=== PATIENT | female | born 1960 | race Caucasian/White ===

== ENCOUNTER 2018-09-29 13:25 | Outpatient (CLI) | payer OTHER | END 2018-09-29 17:00 | disposition home or self-care (01) | LOC: RAD 13:25 | DX: N20.0 Calculus of kidney (principal); I10 Essential (primary) hypertension ==

== ENCOUNTER 2018-10-21 08:21 | Inpatient (IN) | payer OTHER ==
[~2018-10-21] VITALS: Ht 149.9 cm; Wt 95.3 kg
[~2018-10-21 08:21] MED LIST: ATACAND32 MG PO; CLONAZEPAM1 MG PO; CYMBALTA60 MG PO; PLAQUENIL PO; PREDNISONE5 M1 PO; PROTONIX40 MG PO
[2018-10-22] MEDS ORDERED: HYDROXYCHLOROQ200 MG PO (09:01)
== END 2018-10-23 10:24 | disposition home or self-care (01) | DRG 661 ==
LOC: CIR.AMB 08:21 → SURG 15:12 → O/R 15:12 → SURG 19:21
PROVIDERS: ADMIT Urology
PROC: BT1FYZZ Fluoroscopy of Left Kidney, Ureter and Bladder using Other Contrast (ICD-10-PCS; 2018-10-21)
PROC: 0TC43ZZ Extirpation of Matter from Left Kidney Pelvis, Percutaneous Approach (ICD-10-PCS; principal; 2018-10-21 10:30)
PROC: 3E0F7GC Introduction of Other Therapeutic Substance into Respiratory Tract, Via Natural or Artificial Opening (ICD-10-PCS; 2018-10-22)
DX: N20.0 Calculus of kidney (principal); I10 Essential (primary) hypertension; F41.8 Other specified anxiety disorders; F41.0 Panic disorder [episodic paroxysmal anxiety]; G43.809 Other migraine, not intractable, without status migrainosus; M15.0 Primary generalized (osteo)arthritis; J45.998 Other asthma

== ENCOUNTER 2018-10-29 10:09 | Outpatient (CLI) | payer OTHER ==
[~2018-10-29 10:09] MED LIST changes: +HYDROXYCHLOROQ200 MG PO
== END 2018-10-29 13:26 | disposition home or self-care (01) ==
LOC: LAB 10:09
DX: N20.0 Calculus of kidney (principal)

== ENCOUNTER 2018-10-29 11:22 | Outpatient (CLI) | payer OTHER | END 2018-10-29 13:23 | disposition home or self-care (01) | LOC: RAD 11:22 | DX: N20.0 Calculus of kidney (principal) ==

== ENCOUNTER 2019-02-05 07:00 | Day surgery (SDC) | payer OTHER | END 2019-02-05 13:40 | disposition home or self-care (01) | LOC: AMB-ENDOS 07:00 | DX: K64.1 Second degree hemorrhoids (principal); Z12.11 Encounter for screening for malignant neoplasm of colon ==